=== PATIENT | female | born 1940 | race Caucasian/White ===

== ENCOUNTER 2023-04-18 14:17 | Inpatient (IN) | payer MEDICARE, BC ==
[2023-04-18 15:15] LABS: #Basophils 0.1 thou/uL (0.0-0.2); #Eosinphils 0.2 thou/uL (0.0-0.7); #Monocytes 0.6 thou/uL (0.11-0.59); #Neutrophils 7.4 thou/uL (1.40-6.50); %Basophils 0.6 % (0.0-1.0); %Eosinophils 2.5 % (0.0-10.0); %Lymphocytes 7.9 % (21.0-51.0); %Monocytes 6.9 % (0.0-10.0); %Neutrophils 81.8 % (42.0-75.0); Hematocrit 37.1 % (36.0-47.0); Hemoglobin 11.1 g/dL (12.0-16.0); Mean Corpuscular HGB CONC 29.9 g/dL (32.0-36.0); Mean Corpuscular Hemoglobin 27.8 pg (27.0-31.0); Mean Platelet Volume 11.4 fL (7.4-10.4); Platelet Count 161 10x3/uL (130-400); RBC Distribution Width 16.8 % (11.5-14.5); Red Blood Cell (RBC) Count 3.99 mill/uL (4.20-5.40)
[2023-04-18 15:30] LABS: Acetaminophen Less than 10 mcg/mL (10.0-30.0); Alcohol Less than 10.0 mg/dL (Less than 10); Salicylate Less than 8.0 mg/dL (15.0-30.0)
[2023-04-18 15:40] LABS: ALT (SGPT) 12 U/L (8-55); AST (SGOT) 19 U/L (5-34); Albumin 3.7 g/dL (3.4-4.8); Alkaline Phosphatase 89 U/L (40-110); Anion Gap 13 mmol/L (10-20); BUN (Urea Nitrogen) 15 mg/dL (9.8-20.1); Bilirubin, Total 0.9 mg/dL (0.2-1.2); Calc. Creatinine Clearance 0 mL/min (70-130); Calcium 8.3 mg/dL (7.8-10.44); Carbon Dioxide 35 mmol/L (23-31); Chloride 100 mmol/L (98-107); Estimated GFR 74; Globulin 2.3 g/dL (2.4-3.5); Glucose 113 mg/dL (83-110); Potassium 3.3 mmol/L (3.5-5.1); Sodium 145 mmol/L (136-145)
[2023-04-18 15:41] LABS: Troponin I 0.225 ng/mL (< 0.028)
[2023-04-18 15:43] LABS: Bacteria/HPF None Seen HPF (None Seen); Bilirubin Negative (Negative); Blood, Urine Negative (Negative); CAUTI Indications for Culture Alt mental st,lethar; Clarity Clear (Clear); Glucose, Urine (Dipstick) Normal (Negative); Ketone, Urine Negative (Negative); Leukocyte Negative Leu/uL (Negative); Nitrite Negative (Negative); Protein, Urine (Dipstick) Negative (Neg-Trace); RBC/HPF 0-3 HPF (0-3); Specific Gravity, Urine 1.011 (1.002-1.036); Squamous Epithelial None Seen HPF (0-3); Urobilinogen Normal mg/dL (Less than 2); WBC/HPF 0-3 HPF (0-3)
[2023-04-18 15:44] LABS: Urine Culture Reflex No No
[2023-04-18 15:48] LABS: Amphetamine Not Detected (NotDetected); Barbiturates Screen Not Detected (NotDetected); Benzodiazepine Screen Not Detected (NotDetected); Cocaine Metabolite Screen Not Detected (NotDetected); Methadone Not Detected (NotDetected); Methamphetamine Not Detected (NotDetected); Opiate Screen Not Detected (NotDetected); Oxycodone Screen Not Detected (NotDetected); Phencyclidine (PCP) Not Detected (NotDetected); THC/Cannabinoid Screen Not Detected (NotDetected); Tricyclic Screen Not Detected (NotDetected)
[2023-04-18] MEDS ORDERED: Furosemide 40 MG/4 ML VIAL ONE (15:57)
[2023-04-18 16:18] LABS: CRP (Inflammatory) 7.26 mg/dL (= or < 0.5); Magnesium 1.2 mg/dL (1.6-2.6)
[2023-04-18] MEDS ORDERED: cefTRIAXone (ROCEPHIN) 1 GM VIAL ONE (17:44)
[2023-04-18 18:12] LABS: Troponin I 0.177 ng/mL (< 0.028)
[2023-04-18] MEDS ORDERED: Glucagon 1 MG/ML KIT IM PRN (18:55)
[2023-04-18] MEDS ORDERED: Ondansetron ODT 4 MG TAB PO PRN (18:55)
[2023-04-18] MEDS ORDERED: HumaLOG 300 UNITS/3 ML VIAL SC PRN ×2 (18:55)
[2023-04-18] MEDS ORDERED: Acetaminophen 325 MG TAB PO PRN (18:55)
[2023-04-18] MEDS ORDERED: Ondansetron PF 4 MG/2 ML Vial IVP PRN (18:55)
[2023-04-18] MEDS ORDERED: Dextrose 50% Abboject 50 ML SYRINGE SLOW IVP PRN (18:55)
[2023-04-18] MEDS ORDERED: Dextrose 5% in Water 1,000 ML IV PRN (18:55)
[2023-04-18] MEDS ORDERED: Magnesium 2 GM/50 ML(in water) 2 GM in Premix Bag 1 BAG IVPB SCH (19:15)
[2023-04-18] MEDS ORDERED: Doxycycline 100 MG in Sodium Chloride 0.9% 100 ML IVPB SCH (19:30)
[2023-04-18] MEDS: Communication Order-Pharmacy FS SCH (19:57)
[2023-04-18] MEDS ORDERED: Potassium Chloride 20 MEQ TAB PO SCH (20:30)
[2023-04-18 20:58] LABS: Troponin I 0.173 ng/mL (< 0.028)
[2023-04-18] MEDS: Carvedilol 25 MG TAB PO SCH (21:05)
[2023-04-19 03:45] LABS: SARS-CoV-2 NAA Rapid Test Not Detected (NotDetected)
[2023-04-19 04:09] LABS: #Eosinphils 0.3 thou/uL (0.0-0.7); #Monocytes 0.8 thou/uL (0.11-0.59); #Neutrophils 6.6 thou/uL (1.40-6.50); %Basophils 0.5 % (0.0-1.0); %Eosinophils 3.1 % (0.0-10.0); %Lymphocytes 11.4 % (21.0-51.0); %Monocytes 8.6 % (0.0-10.0); %Neutrophils 76.1 % (42.0-75.0); Hematocrit 35.6 % (36.0-47.0); Hemoglobin 10.2 g/dL (12.0-16.0); Mean Corpuscular HGB CONC 28.7 g/dL (32.0-36.0); Mean Corpuscular Volume 94.2 fl (78.0-98.0); Mean Platelet Volume 11.5 fL (7.4-10.4); Platelet Count 157 10x3/uL (130-400); RBC Distribution Width 16.6 % (11.5-14.5); Red Blood Cell (RBC) Count 3.78 mill/uL (4.20-5.40); White Blood Cell (WBC) Count 8.7 10x3/uL (4.8-10.8)
[2023-04-19 04:29] LABS: Hemoglobin A1c 5.5 % (4.0-6.0)
[2023-04-19 04:36] LABS: ALT (SGPT) 12 U/L (8-55); AST (SGOT) 17 U/L (5-34); Albumin 3.5 g/dL (3.4-4.8); Alkaline Phosphatase 82 U/L (40-110); BUN (Urea Nitrogen) 15 mg/dL (9.8-20.1); Bilirubin, Total 0.5 mg/dL (0.2-1.2); Calc. Creatinine Clearance 77 mL/min (70-130); Estimated GFR 72; Glucose 107 mg/dL (83-110); Magnesium 1.6 mg/dL (1.6-2.6); Protein, Total 5.5 g/dL (5.8-8.1)
[2023-04-19 04:37] LABS: CRP (Inflammatory) 5.47 mg/dL (= or < 0.5); Cardiac Risk 2.4 (Less than 4.5)
[2023-04-19 04:45] LABS: Anion Gap 18 mmol/L (10-20); Carbon Dioxide 33 mmol/L (23-31); Chloride 99 mmol/L (98-107); Potassium 3.4 mmol/L (3.5-5.1); Sodium 147 mmol/L (136-145)
[2023-04-19] MEDS: Furosemide 80 MG TAB PO SCH ×2 (05:46→13:25)
[2023-04-19] MEDS ORDERED: Furosemide 40 MG/4 ML VIAL SLOW IVP SCH (06:00)
[2023-04-19] MEDS ORDERED: Losartan 25 MG TAB PO SCH (09:00)
[2023-04-19] MEDS: Allopurinol 300 MG TAB PO SCH (09:15)
[2023-04-19] MEDS: Doxycycline 100 MG in Sodium Chloride 0.9% 100 ML IVPB SCH ×2 (09:15→20:43)
[2023-04-19] MEDS: Aspirin Chewable 81 MG TAB PO SCH (09:15)
[2023-04-19] MEDS: Carvedilol 25 MG TAB PO SCH (09:15)
[2023-04-19] MEDS ORDERED: Potassium Chloride 20 MEQ TAB PO SCH (10:00)
[2023-04-19] MEDS: cefTRIAXone\\ROCEPHIN 1 GM in Sodium Chloride 0.9% 100 ML IVPB SCH (17:07)
[2023-04-20 03:48] LABS: #Basophils 0.1 thou/uL (0.0-0.2); #Eosinphils 0.4 thou/uL (0.0-0.7); #Monocytes 0.8 thou/uL (0.11-0.59); #Neutrophils 6.4 thou/uL (1.40-6.50); %Basophils 0.7 % (0.0-1.0); %Eosinophils 4.3 % (0.0-10.0); %Lymphocytes 13.1 % (21.0-51.0); %Monocytes 8.9 % (0.0-10.0); %Neutrophils 72.8 % (42.0-75.0); Hematocrit 35.7 % (36.0-47.0); Hemoglobin 10.5 g/dL (12.0-16.0); Mean Corpuscular HGB CONC 29.4 g/dL (32.0-36.0); Mean Corpuscular Hemoglobin 27.7 pg (27.0-31.0); Mean Corpuscular Volume 94.2 fl (78.0-98.0); Mean Platelet Volume 10.9 fL (7.4-10.4); Platelet Count 193 10x3/uL (130-400); RBC Distribution Width 16.2 % (11.5-14.5); Red Blood Cell (RBC) Count 3.79 mill/uL (4.20-5.40); White Blood Cell (WBC) Count 8.8 10x3/uL (4.8-10.8)
[2023-04-20 04:16] LABS: ALT (SGPT) 11 U/L (8-55); AST (SGOT) 18 U/L (5-34); Albumin 3.4 g/dL (3.4-4.8); Alkaline Phosphatase 72 U/L (40-110); BUN (Urea Nitrogen) 14 mg/dL (9.8-20.1); Bilirubin, Total 0.5 mg/dL (0.2-1.2); Calc. Creatinine Clearance 78 mL/min (70-130); Calcium 8.2 mg/dL (7.8-10.44); Estimated GFR 74; Globulin 2.4 g/dL (2.4-3.5); Glucose 99 mg/dL (83-110); Magnesium 1.2 mg/dL (1.6-2.6); Protein, Total 5.8 g/dL (5.8-8.1)
[2023-04-20 04:26] LABS: Anion Gap 20 mmol/L (10-20); Carbon Dioxide 32 mmol/L (23-31); Chloride 98 mmol/L (98-107); Potassium 3.6 mmol/L (3.5-5.1); Sodium 146 mmol/L (136-145)
[2023-04-20] MEDS: Furosemide 80 MG TAB PO SCH (05:48)
[2023-04-20] MEDS ORDERED: Magnesium Sulfate In Water 4 GM in Premix Bag 1 BAG IVPB SCH (09:15)
[2023-04-20] MEDS: Potassium Chloride 20 MEQ TAB PO SCH (09:38)
[2023-04-20] MEDS: Aspirin Chewable 81 MG TAB PO SCH (09:38)
[2023-04-20] MEDS: Doxycycline 100 MG in Sodium Chloride 0.9% 100 ML IVPB SCH ×2 (09:38→22:07)
[2023-04-20] MEDS: Allopurinol 300 MG TAB PO SCH (09:38)
[2023-04-20] MEDS ORDERED: Nystatin Powder 15 GM BOT TOP PRN (12:17)
[2023-04-20] MEDS: Communication Order-Pharmacy FS SCH (12:23)
[2023-04-20] MEDS: Furosemide 40 MG/4 ML VIAL SLOW IVP SCH ×2 (12:24→14:31)
[2023-04-20 16:09] LABS: Actual Bicarbonate (HCO3a) 35.4 mEq/L (22-28); Base Excess (BEa) 8.9 mEq/L (-2.0 to +3.0); CO2 Tension 59.4 mmHg (35.0-45.0); Calcium, Ionized (arterial) 1.07 mmol/L (1.12-1.30); Carboxyhemoglobin (COHb) 1.2 gm% (0.0-3.0); Hematocrit-ABG 31 % (36.0-47.0); Hemoglobin (Hb) 10.7 g/dL (12.0-16.0); O2 Tension (PaO2), arterial 75.7 mmHg (> 60.0); pH, Arterial 7.393 (7.35-7.45)
[2023-04-20 16:11] LABS: Puncture Site RBA
[2023-04-20] MEDS: cefTRIAXone\\ROCEPHIN 1 GM in Sodium Chloride 0.9% 100 ML IVPB SCH (18:42)
[2023-04-20] MEDS ORDERED: Ipratropium/Albuterol 3 ML NEB NEB SCH (19:30)
[2023-04-20] MEDS: Melatonin 3 MG TAB PO SCH ×2 (22:06→22:09)
[2023-04-21 04:33] LABS: #Basophils 0.1 thou/uL (0.0-0.2); #Eosinphils 0.3 thou/uL (0.0-0.7); #Monocytes 0.8 thou/uL (0.11-0.59); #Neutrophils 6.3 thou/uL (1.40-6.50); %Basophils 0.6 % (0.0-1.0); %Eosinophils 3.8 % (0.0-10.0); %Lymphocytes 15.7 % (21.0-51.0); %Monocytes 8.5 % (0.0-10.0); %Neutrophils 71.1 % (42.0-75.0); Hematocrit 36.1 % (36.0-47.0); Hemoglobin 10.5 g/dL (12.0-16.0); Mean Corpuscular HGB CONC 29.1 g/dL (32.0-36.0); Mean Corpuscular Hemoglobin 27.3 pg (27.0-31.0); Mean Corpuscular Volume 93.8 fl (78.0-98.0); Mean Platelet Volume 11.1 fL (7.4-10.4); Platelet Count 191 10x3/uL (130-400); RBC Distribution Width 16.2 % (11.5-14.5); Red Blood Cell (RBC) Count 3.85 mill/uL (4.20-5.40); White Blood Cell (WBC) Count 8.8 10x3/uL (4.8-10.8)
[2023-04-21 05:00] LABS: ALT (SGPT) 10 U/L (8-55); AST (SGOT) 17 U/L (5-34); Albumin 3.4 g/dL (3.4-4.8); Alkaline Phosphatase 73 U/L (40-110); BUN (Urea Nitrogen) 11 mg/dL (9.8-20.1); Bilirubin, Total 0.5 mg/dL (0.2-1.2); Calc. Creatinine Clearance 86 mL/min (70-130); Calcium 8.8 mg/dL (7.8-10.44); Estimated GFR 83; Globulin 2.4 g/dL (2.4-3.5); Glucose 103 mg/dL (83-110); Protein, Total 5.8 g/dL (5.8-8.1)
[2023-04-21 05:09] LABS: Anion Gap 18 mmol/L (10-20); Carbon Dioxide 35 mmol/L (23-31); Chloride 97 mmol/L (98-107); Potassium 3.6 mmol/L (3.5-5.1); Sodium 146 mmol/L (136-145)
[2023-04-21] MEDS: Furosemide 40 MG/4 ML VIAL SLOW IVP SCH (05:42)
[2023-04-21] MEDS: Aspirin Chewable 81 MG TAB PO SCH (09:42)
[2023-04-21] MEDS: Potassium Chloride 20 MEQ TAB PO SCH (09:43)
[2023-04-21] MEDS: Doxycycline 100 MG in Sodium Chloride 0.9% 100 ML IVPB SCH ×2 (09:43→21:39)
[2023-04-21] MEDS: Losartan 25 MG TAB PO SCH (09:43)
[2023-04-21] MEDS: Allopurinol 300 MG TAB PO SCH (09:43)
[2023-04-21 09:44] LABS: Magnesium 1.7 mg/dL (1.6-2.6)
[2023-04-21] MEDS ORDERED: Magnesium 2 GM/50 ML(in water) 2 GM in Premix Bag 1 BAG IVPB SCH (12:00)
[2023-04-21] MEDS: cefTRIAXone\\ROCEPHIN 1 GM in Sodium Chloride 0.9% 100 ML IVPB SCH (17:43)
[2023-04-21] MEDS: Melatonin 3 MG TAB PO SCH (21:35)
[2023-04-22 04:56] LABS: #Eosinphils 0.2 thou/uL (0.0-0.7); #Monocytes 0.6 thou/uL (0.11-0.59); #Neutrophils 4.7 thou/uL (1.40-6.50); %Basophils 0.5 % (0.0-1.0); %Eosinophils 3.5 % (0.0-10.0); %Lymphocytes 15.1 % (21.0-51.0); %Monocytes 9.1 % (0.0-10.0); Hematocrit 35.4 % (36.0-47.0); Hemoglobin 10.4 g/dL (12.0-16.0); Mean Corpuscular HGB CONC 29.4 g/dL (32.0-36.0); Mean Corpuscular Hemoglobin 27.7 pg (27.0-31.0); Mean Corpuscular Volume 94.4 fl (78.0-98.0); Mean Platelet Volume 10.8 fL (7.4-10.4); Platelet Count 161 10x3/uL (130-400); RBC Distribution Width 15.8 % (11.5-14.5); Red Blood Cell (RBC) Count 3.75 mill/uL (4.20-5.40); White Blood Cell (WBC) Count 6.6 10x3/uL (4.8-10.8)
[2023-04-22 06:58] LABS: ALT (SGPT) 9 U/L (8-55); AST (SGOT) 18 U/L (5-34); Albumin 3.3 g/dL (3.4-4.8); Alkaline Phosphatase 70 U/L (40-110); BUN (Urea Nitrogen) 10 mg/dL (9.8-20.1); Bilirubin, Total 0.5 mg/dL (0.2-1.2); Calc. Creatinine Clearance 93 mL/min (70-130); Estimated GFR 88; Globulin 2.3 g/dL (2.4-3.5); Glucose 106 mg/dL (83-110); Protein, Total 5.6 g/dL (5.8-8.1)
[2023-04-22 07:19] LABS: Anion Gap 17 mmol/L (10-20); Carbon Dioxide 38 mmol/L (23-31); Chloride 96 mmol/L (98-107); Potassium 3.8 mmol/L (3.5-5.1); Sodium 147 mmol/L (136-145)
[2023-04-22] MEDS: Doxycycline 100 MG in Sodium Chloride 0.9% 100 ML IVPB SCH ×2 (08:56→21:21)
[2023-04-22] MEDS: Aspirin Chewable 81 MG TAB PO SCH (08:57)
[2023-04-22] MEDS: Allopurinol 300 MG TAB PO SCH (08:57)
[2023-04-22] MEDS: Losartan 25 MG TAB PO SCH (08:57)
[2023-04-22] MEDS: Potassium Chloride 20 MEQ TAB PO SCH ×2 (08:57→09:25)
[2023-04-22] MEDS ORDERED: Losartan 25 MG TAB PO SCH (10:00)
[2023-04-22] MEDS: cefTRIAXone\\ROCEPHIN 1 GM in Sodium Chloride 0.9% 100 ML IVPB SCH (18:20)
[2023-04-22] MEDS: Melatonin 3 MG TAB PO SCH (21:21)
[2023-04-23 07:19] LABS: #Basophils 0.1 thou/uL (0.0-0.2); #Eosinphils 0.3 thou/uL (0.0-0.7); #Monocytes 0.8 thou/uL (0.11-0.59); #Neutrophils 5.6 thou/uL (1.40-6.50); %Basophils 0.6 % (0.0-1.0); %Eosinophils 3.4 % (0.0-10.0); %Lymphocytes 15.4 % (21.0-51.0); %Monocytes 9.8 % (0.0-10.0); %Neutrophils 70.3 % (42.0-75.0); Hematocrit 37.1 % (36.0-47.0); Hemoglobin 10.8 g/dL (12.0-16.0); Mean Corpuscular HGB CONC 29.1 g/dL (32.0-36.0); Mean Corpuscular Hemoglobin 27.4 pg (27.0-31.0); Mean Corpuscular Volume 94.2 fl (78.0-98.0); Mean Platelet Volume 11.2 fL (7.4-10.4); Platelet Count 174 10x3/uL (130-400); RBC Distribution Width 15.7 % (11.5-14.5); Red Blood Cell (RBC) Count 3.94 mill/uL (4.20-5.40)
[2023-04-23 07:21] LABS: ALT (SGPT) 12 U/L (8-55); AST (SGOT) 19 U/L (5-34); Albumin 3.2 g/dL (3.4-4.8); Alkaline Phosphatase 69 U/L (40-110); BUN (Urea Nitrogen) 9 mg/dL (9.8-20.1); Bilirubin, Total 0.6 mg/dL (0.2-1.2); Calc. Creatinine Clearance 93 mL/min (70-130); Calcium 9.1 mg/dL (7.8-10.44); Estimated GFR 88; Globulin 2.5 g/dL (2.4-3.5); Glucose 96 mg/dL (83-110); Protein, Total 5.7 g/dL (5.8-8.1)
[2023-04-23 07:30] LABS: Anion Gap 18 mmol/L (10-20); Carbon Dioxide 35 mmol/L (23-31); Chloride 95 mmol/L (98-107); Potassium 3.9 mmol/L (3.5-5.1); Sodium 144 mmol/L (136-145)
[2023-04-23] MEDS: Aspirin Chewable 81 MG TAB PO SCH (08:55)
[2023-04-23] MEDS: Allopurinol 300 MG TAB PO SCH (08:56)
[2023-04-23] MEDS ORDERED: Losartan 25 MG TAB PO SCH ×2 (09:00→11:00)
[2023-04-23] MEDS: Melatonin 3 MG TAB PO SCH (19:46)
[2023-04-24 05:52] LABS: #Basophils 0.1 thou/uL (0.0-0.2); #Eosinphils 0.2 thou/uL (0.0-0.7); #Monocytes 0.7 thou/uL (0.11-0.59); #Neutrophils 5.6 thou/uL (1.40-6.50); %Basophils 0.6 % (0.0-1.0); %Eosinophils 2.8 % (0.0-10.0); %Lymphocytes 17.8 % (21.0-51.0); %Neutrophils 68.9 % (42.0-75.0); Hematocrit 34.3 % (36.0-47.0); Mean Corpuscular HGB CONC 29.2 g/dL (32.0-36.0); Mean Corpuscular Hemoglobin 27.2 pg (27.0-31.0); Mean Corpuscular Volume 93.2 fl (78.0-98.0); Mean Platelet Volume 11.4 fL (7.4-10.4); Platelet Count 185 10x3/uL (130-400); RBC Distribution Width 15.8 % (11.5-14.5); Red Blood Cell (RBC) Count 3.68 mill/uL (4.20-5.40); White Blood Cell (WBC) Count 8.2 10x3/uL (4.8-10.8)
[2023-04-24 06:23] LABS: ALT (SGPT) 12 U/L (8-55); AST (SGOT) 20 U/L (5-34); Albumin 2.8 g/dL (3.4-4.8); Alkaline Phosphatase 64 U/L (40-110); BUN (Urea Nitrogen) 13 mg/dL (9.8-20.1); Bilirubin, Total 0.5 mg/dL (0.2-1.2); Calc. Creatinine Clearance 93 mL/min (70-130); Calcium 8.9 mg/dL (7.8-10.44); Estimated GFR 88; Globulin 2.4 g/dL (2.4-3.5); Glucose 115 mg/dL (83-110); Protein, Total 5.2 g/dL (5.8-8.1)
[2023-04-24 06:32] LABS: Anion Gap 15 mmol/L (10-20); Carbon Dioxide 35 mmol/L (23-31); Chloride 97 mmol/L (98-107); Potassium 3.7 mmol/L (3.5-5.1); Sodium 143 mmol/L (136-145)
[2023-04-24] MEDS: Aspirin Chewable 81 MG TAB PO SCH (10:49)
[2023-04-24] MEDS: Losartan 25 MG TAB PO SCH (10:49)
[2023-04-24] MEDS: Allopurinol 300 MG TAB PO SCH (10:49)
[2023-04-24 13:34] VITALS: BMI 37.9
[2023-04-24] MEDS: Melatonin 3 MG TAB PO SCH (20:26)
[2023-04-25 05:50] LABS: #Eosinphils 0.3 thou/uL (0.0-0.7); #Neutrophils 5.6 thou/uL (1.40-6.50); %Basophils 0.5 % (0.0-1.0); %Eosinophils 3.7 % (0.0-10.0); %Lymphocytes 17.6 % (21.0-51.0); %Monocytes 11.2 % (0.0-10.0); %Neutrophils 66.3 % (42.0-75.0); Hematocrit 35.6 % (36.0-47.0); Hemoglobin 10.5 g/dL (12.0-16.0); Mean Corpuscular HGB CONC 29.5 g/dL (32.0-36.0); Mean Corpuscular Hemoglobin 27.4 pg (27.0-31.0); Mean Platelet Volume 11.5 fL (7.4-10.4); Platelet Count 195 10x3/uL (130-400); Red Blood Cell (RBC) Count 3.83 mill/uL (4.20-5.40); White Blood Cell (WBC) Count 8.5 10x3/uL (4.8-10.8)
[2023-04-25 06:19] LABS: ALT (SGPT) 12 U/L (8-55); AST (SGOT) 23 U/L (5-34); Alkaline Phosphatase 66 U/L (40-110); Anion Gap 11 mmol/L (10-20); BUN (Urea Nitrogen) 9 mg/dL (9.8-20.1); Bilirubin, Total 0.3 mg/dL (0.2-1.2); Calc. Creatinine Clearance 91 mL/min (70-130); Calcium 8.9 mg/dL (7.8-10.44); Carbon Dioxide 36 mmol/L (23-31); Chloride 99 mmol/L (98-107); Estimated GFR 88; Globulin 2.5 g/dL (2.4-3.5); Glucose 127 mg/dL (83-110); Potassium 4.1 mmol/L (3.5-5.1); Protein, Total 5.5 g/dL (5.8-8.1); Sodium 142 mmol/L (136-145)
[2023-04-25] MEDS: Losartan 25 MG TAB PO SCH (11:27)
[2023-04-25] MEDS: Allopurinol 300 MG TAB PO SCH (11:27)
[2023-04-25] MEDS: Aspirin Chewable 81 MG TAB PO SCH (11:28)
[2023-04-25 14:25] VITALS: BP 123/58; TEMP 98.2
== END 2023-04-25 13:48 | disposition home or self-care (01) | DRG 193 ==
LOC: ERS 14:17 → 2NO 17:55 → T4-A 04-21 12:14 → T4-B 04-21 14:15
PROVIDERS: ADMIT Family Medicine; ATTEND Family Medicine
PROC: 0T9B70Z Drainage of Bladder with Drainage Device, Via Natural or Artificial Opening (ICD-10-PCS; principal; 2023-04-18)
PROC: 4A033R1 Measurement of Arterial Saturation, Peripheral, Percutaneous Approach (ICD-10-PCS; 2023-04-20)
PROC: 4A00X4Z Measurement of Central Nervous Electrical Activity, External Approach (ICD-10-PCS; 2023-04-23)
DX: J12.9 Viral pneumonia, unspecified (principal); G93.41 Metabolic encephalopathy; J96.01 Acute respiratory failure with hypoxia; I50.33 Acute on chronic diastolic (congestive) heart failure; E87.3 Alkalosis; J96.12 Chronic respiratory failure with hypercapnia; I24.89 Other forms of acute ischemic heart disease; I48.91 Unspecified atrial fibrillation; E87.70 Fluid overload, unspecified; M10.9 Gout, unspecified; I11.0 Hypertensive heart disease with heart failure; E11.9 Type 2 diabetes mellitus without complications; G47.33 Obstructive sleep apnea (adult) (pediatric); Z20.822 Contact with and (suspected) exposure to COVID-19; Z79.899 Other long term (current) drug therapy; Z79.84 Long term (current) use of oral hypoglycemic drugs; Z82.49 Family history of ischemic heart disease and other diseases of the circulatory system; Z79.4 Long term (current) use of insulin; Z79.82 Long term (current) use of aspirin; Z83.3 Family history of diabetes mellitus; R94.31 Abnormal electrocardiogram [ECG] [EKG]; I08.1 Rheumatic disorders of both mitral and tricuspid valves
CPT/HCPCS: 36415; 36416; 36600; 51701; 70450; 71045; 71046; 74230; 80053; 80061; 80306; 80307; 81001; 82140; 82805; 83036; 83605; 83735; 83880; 84145; 84443; 84484; 85025; 86140; 87040; 87077; 87149; 87186; 93005; 93306; 94640; 95711; 95819; 95957; 96365; 96372; 96375; J0696; J1650; J1940; J3475; J3490; J7611

== ENCOUNTER 2023-07-15 21:48 | Inpatient (IN) | payer MEDICARE, BC ==
[~2023-07-15 21:48] MED LIST: Iopamidol-370 76% 500 ML MDV (1 ML CHARGE) ONE
[2023-07-15 22:58] LABS: #Monocytes 0.8 thou/uL (0.11-0.59); #Neutrophils 14.6 thou/uL (1.40-6.50); %Basophils 0.1 % (0.0-1.0); %Lymphocytes 6.3 % (21.0-51.0); %Monocytes 4.6 % (0.0-10.0); %Neutrophils 88.7 % (42.0-75.0); Hematocrit 41.8 % (36.0-47.0); Mean Corpuscular HGB CONC 31.1 g/dL (32.0-36.0); Mean Corpuscular Hemoglobin 27.8 pg (27.0-31.0); Mean Corpuscular Volume 89.3 fl (78.0-98.0); Mean Platelet Volume 10.7 fL (7.4-10.4); Platelet Count 257 10x3/uL (130-400); RBC Distribution Width 14.7 % (11.5-14.5); Red Blood Cell (RBC) Count 4.68 mill/uL (4.20-5.40); White Blood Cell (WBC) Count 16.5 10x3/uL (4.8-10.8)
[2023-07-15 23:12] LABS: INR-International Normal Ratio 1.1; Prothrombin Time 14.9 sec (12.0-14.7)
[2023-07-15 23:14] LABS: PTT 28.5 sec (22.9-36.1)
[2023-07-15 23:17] LABS: Bacteria/HPF None Seen HPF (None Seen); Bilirubin Negative (Negative); Blood, Urine Negative (Negative); CAUTI Indications for Culture Alt mental st,lethar; Clarity Clear (Clear); Glucose, Urine (Dipstick) Normal (Negative); Ketone, Urine 40 mg/dL (Negative); Leukocyte Negative Leu/uL (Negative); Nitrite Negative (Negative); Protein, Urine (Dipstick) 30 mg/dL (Neg-Trace); Specific Gravity, Urine 1.046 (1.002-1.036); Squamous Epithelial None Seen HPF (0-3); Urobilinogen Normal mg/dL (Less than 2); WBC/HPF 0-3 HPF (0-3)
[2023-07-15 23:18] LABS: Urine Culture Reflex No No
[2023-07-15 23:19] LABS: ALT (SGPT) 17 U/L (8-55); AST (SGOT) 25 U/L (5-34); Albumin 4.1 g/dL (3.4-4.8); Alkaline Phosphatase 94 U/L (40-110); Anion Gap 15 mmol/L (10-20); BUN (Urea Nitrogen) 19 mg/dL (9.8-20.1); Bilirubin, Total 0.6 mg/dL (0.2-1.2); Calc. Creatinine Clearance 0 mL/min (70-130); Calcium 9.5 mg/dL (7.8-10.44); Carbon Dioxide 26 mmol/L (23-31); Chloride 101 mmol/L (98-107); Estimated GFR 77; Globulin 3.1 g/dL (2.4-3.5); Glucose 139 mg/dL (83-110); Potassium 4.4 mmol/L (3.5-5.1); Protein, Total 7.2 g/dL (5.8-8.1); Sodium 138 mmol/L (136-145)
[2023-07-15 23:23] LABS: Troponin I 0.163 ng/mL (< 0.028)
[2023-07-15] MEDS ORDERED: Heparin 5,000 UNITS/ML VIAL ONE (23:29)
[2023-07-15] MEDS ORDERED: Heparin 25,000 units/D5W 500 ML ONE (23:29)
[2023-07-15] MEDS ORDERED: Aspirin 300 MG Suppository ONE (23:30)
[2023-07-16] MEDS ORDERED: hydrALAZINE 20 MG/ML VIAL SLOW IVP PRN (00:21)
[2023-07-16] MEDS ORDERED: Acetaminophen 325 MG TAB PO PRN (00:21)
[2023-07-16] MEDS ORDERED: Labetalol HCl 100 MG/20 ML VIAL SLOW IVP PRN (00:21)
[2023-07-16] MEDS ORDERED: Acetaminophen 650 MG Suppository PR PRN (00:21)
[2023-07-16] MEDS ORDERED: Ondansetron PF 4 MG/2 ML Vial IVP PRN (00:21)
[2023-07-16] MEDS ORDERED: Dextrose 5% in Water 1,000 ML IV PRN (00:30)
[2023-07-16] MEDS ORDERED: HumaLOG 300 UNITS/3 ML VIAL SC PRN ×2 (00:30)
[2023-07-16] MEDS ORDERED: Dextrose 50% Abboject 50 ML SYRINGE SLOW IVP PRN (00:30)
[2023-07-16] MEDS ORDERED: Glucagon 1 MG/ML KIT IM PRN (00:30)
[2023-07-16] MEDS ORDERED: Heparin 10,000 UNITS/ 10 ML VIAL SLOW IVP SCH (01:45)
[2023-07-16] MEDS ORDERED: Heparin 25,000 units/D5W 500 ML IVPB SCH (03:00)
[2023-07-16] MEDS ORDERED: Sodium Chloride 0.9% 500 ML IV SCH (03:30)
[2023-07-16 04:45] LABS: #Monocytes 1.1 thou/uL (0.11-0.59); %Basophils 0.2 % (0.0-1.0); %Lymphocytes 8.8 % (21.0-51.0); %Monocytes 6.4 % (0.0-10.0); %Neutrophils 84.3 % (42.0-75.0); Hematocrit 43.1 % (36.0-47.0); Hemoglobin 12.8 g/dL (12.0-16.0); Mean Corpuscular HGB CONC 29.7 g/dL (32.0-36.0); Mean Corpuscular Hemoglobin 27.6 pg (27.0-31.0); Platelet Count 212 10x3/uL (130-400); RBC Distribution Width 14.9 % (11.5-14.5); Red Blood Cell (RBC) Count 4.63 mill/uL (4.20-5.40); White Blood Cell (WBC) Count 17.8 10x3/uL (4.8-10.8)
[2023-07-16 04:49] LABS: Hemoglobin A1c 6.2 % (4.0-6.0)
[2023-07-16 04:58] LABS: Mean Corpuscular Volume 93.1 fl (78.0-98.0)
[2023-07-16 05:15] LABS: Anion Gap 15 mmol/L (10-20); BUN (Urea Nitrogen) 18 mg/dL (9.8-20.1); Calc. Creatinine Clearance 76 mL/min (70-130); Calcium 9.4 mg/dL (7.8-10.44); Carbon Dioxide 24 mmol/L (23-31); Cardiac Risk 2.2 (Less than 4.5); Chloride 103 mmol/L (98-107); Cholesterol 129 mg/dl (< 200 Desired); Estimated GFR 81; Glucose 126 mg/dL (83-110); HDL Cholesterol 60 mg/dL (>60 Neg Risk); LDL Cholesterol, Calculated 59 mg/dL; Sodium 138 mmol/L (136-145); Triglycerides 50 mg/dL (Less than 150)
[2023-07-16 05:18] LABS: Troponin I 0.233 ng/mL (< 0.028)
[2023-07-16 05:22] LABS: PTT 176.5 sec (22.9-36.1)
[2023-07-16] MEDS ORDERED: Lorazepam 2 MG/ML VIAL SLOW IVP SCH (12:00)
[2023-07-16 12:16] LABS: Troponin I 0.211 ng/mL (< 0.028)
[2023-07-16] MEDS: Sodium Chloride 0.9% 1,000 ML IV SCH ×2 (18:31→22:48)
[2023-07-16] MEDS: cefTRIAXone\\ROCEPHIN 2 GM in Sodium Chloride 0.9% 100 ML IVPB SCH (18:31)
[2023-07-16 18:55] LABS: Bacteria/HPF 2+ HPF (None Seen); Bilirubin Negative (Negative); Blood, Urine Negative (Negative); CAUTI Indications for Culture Alt mental st,lethar; Clarity Clear (Clear); Glucose, Urine (Dipstick) Normal (Negative); Ketone, Urine 10 mg/dL (Negative); Leukocyte Negative Leu/uL (Negative); Nitrite Negative (Negative); Protein, Urine (Dipstick) 10 mg/dL (Neg-Trace); RBC/HPF 0-3 HPF (0-3); Specific Gravity, Urine 1.024 (1.002-1.036); Squamous Epithelial None Seen HPF (0-3); Urobilinogen Normal mg/dL (Less than 2); WBC/HPF 0-3 HPF (0-3)
[2023-07-16 18:56] LABS: Urine Culture Reflex No No
[2023-07-16] MEDS: QUEtiapine 25 MG TAB PO SCH (20:45)
[2023-07-17 05:32] LABS: #Eosinphils 0.1 thou/uL (0.0-0.7); #Monocytes 1.3 thou/uL (0.11-0.59); #Neutrophils 7.9 thou/uL (1.40-6.50); %Basophils 0.3 % (0.0-1.0); %Eosinophils 1.1 % (0.0-10.0); %Lymphocytes 20.8 % (21.0-51.0); %Monocytes 10.9 % (0.0-10.0); %Neutrophils 66.6 % (42.0-75.0); Hematocrit 39.7 % (36.0-47.0); Hemoglobin 11.8 g/dL (12.0-16.0); Mean Corpuscular HGB CONC 29.7 g/dL (32.0-36.0); Mean Corpuscular Volume 90.8 fl (78.0-98.0); Mean Platelet Volume 10.9 fL (7.4-10.4); Platelet Count 153 10x3/uL (130-400); RBC Distribution Width 14.8 % (11.5-14.5); Red Blood Cell (RBC) Count 4.37 mill/uL (4.20-5.40); White Blood Cell (WBC) Count 11.9 10x3/uL (4.8-10.8)
[2023-07-17 05:57] LABS: Anion Gap 12 mmol/L (10-20); BUN (Urea Nitrogen) 19 mg/dL (9.8-20.1); Calc. Creatinine Clearance 87 mL/min (70-130); Calcium 8.4 mg/dL (7.8-10.44); Carbon Dioxide 25 mmol/L (23-31); Chloride 105 mmol/L (98-107); Estimated GFR 88; Glucose 92 mg/dL (83-110); Potassium 3.4 mmol/L (3.5-5.1); Sodium 139 mmol/L (136-145)
[2023-07-17 06:24] LABS: PTT 136.9 sec (22.9-36.1)
[2023-07-17] MEDS ORDERED: Aspirin 300 MG Suppository PR SCH (09:00)
[2023-07-17] MEDS: Apixaban 5 MG TAB PO SCH ×2 (10:57→20:51)
[2023-07-17] MEDS ORDERED: Aspirin 325 MG TAB PO SCH (11:00)
[2023-07-17] MEDS: cefTRIAXone\\ROCEPHIN 2 GM in Sodium Chloride 0.9% 100 ML IVPB SCH (18:11)
[2023-07-17] MEDS: QUEtiapine 25 MG TAB PO SCH (20:52)
[2023-07-17] MEDS: Famotidine 20 MG TAB PO SCH (20:52)
[2023-07-18 04:42] LABS: #Basophils 0.1 thou/uL (0.0-0.2); #Eosinphils 0.3 thou/uL (0.0-0.7); #Monocytes 0.9 thou/uL (0.11-0.59); #Neutrophils 6.9 thou/uL (1.40-6.50); %Basophils 0.6 % (0.0-1.0); %Eosinophils 2.6 % (0.0-10.0); %Lymphocytes 14.2 % (21.0-51.0); %Monocytes 9.6 % (0.0-10.0); %Neutrophils 72.7 % (42.0-75.0); Hematocrit 36.3 % (36.0-47.0); Hemoglobin 11.3 g/dL (12.0-16.0); Mean Corpuscular HGB CONC 31.1 g/dL (32.0-36.0); Mean Corpuscular Hemoglobin 27.8 pg (27.0-31.0); Mean Corpuscular Volume 89.2 fl (78.0-98.0); Mean Platelet Volume 11.4 fL (7.4-10.4); Platelet Count 168 10x3/uL (130-400); RBC Distribution Width 14.7 % (11.5-14.5); Red Blood Cell (RBC) Count 4.07 mill/uL (4.20-5.40); White Blood Cell (WBC) Count 9.6 10x3/uL (4.8-10.8)
[2023-07-18 05:16] LABS: Anion Gap 11 mmol/L (10-20); BUN (Urea Nitrogen) 15 mg/dL (9.8-20.1); Calc. Creatinine Clearance 85 mL/min (70-130); Calcium 8.2 mg/dL (7.8-10.44); Carbon Dioxide 26 mmol/L (23-31); Chloride 107 mmol/L (98-107); Estimated GFR 87; Glucose 123 mg/dL (83-110); Sodium 141 mmol/L (136-145)
[2023-07-18] MEDS ORDERED: Aspirin 325 MG TAB PO SCH (09:00)
[2023-07-18] MEDS: Famotidine 20 MG TAB PO SCH ×2 (09:13→20:32)
[2023-07-18] MEDS: Apixaban 5 MG TAB PO SCH ×2 (09:13→20:32)
[2023-07-18] MEDS ORDERED: Potassium Chloride 20 MEQ TAB PO SCH (11:00)
[2023-07-18 11:21] LABS: Magnesium 1.4 mg/dL (1.6-2.6)
[2023-07-18] MEDS ORDERED: Magnesium Sulfate In Water 4 GM in Premix 1 BAG IVPB SCH (14:30)
[2023-07-18] MEDS: QUEtiapine 25 MG TAB PO SCH (20:31)
[2023-07-19] MEDS: Apixaban 5 MG TAB PO SCH ×2 (09:02→21:50)
[2023-07-19] MEDS: Famotidine 20 MG TAB PO SCH ×2 (09:02→21:50)
[2023-07-19] MEDS: Allopurinol 300 MG TAB PO SCH (09:02)
[2023-07-19 09:14] LABS: Anion Gap 13 mmol/L (10-20); BUN (Urea Nitrogen) 14 mg/dL (9.8-20.1); Calc. Creatinine Clearance 84 mL/min (70-130); Calcium 8.1 mg/dL (7.8-10.44); Carbon Dioxide 24 mmol/L (23-31); Chloride 110 mmol/L (98-107); Estimated GFR 87; Glucose 101 mg/dL (83-110); Potassium 4.1 mmol/L (3.5-5.1); Sodium 143 mmol/L (136-145)
[2023-07-19] MEDS: QUEtiapine 25 MG TAB PO SCH (21:50)
[2023-07-20] MEDS: Apixaban 5 MG TAB PO SCH ×2 (08:56→20:28)
[2023-07-20] MEDS: Famotidine 20 MG TAB PO SCH ×2 (08:56→20:28)
[2023-07-20] MEDS: Allopurinol 300 MG TAB PO SCH (08:56)
[2023-07-20] MEDS: QUEtiapine 25 MG TAB PO SCH (20:28)
[2023-07-21] MEDS: Allopurinol 300 MG TAB PO SCH (09:12)
[2023-07-21] MEDS: Famotidine 20 MG TAB PO SCH ×2 (09:12→20:47)
[2023-07-21] MEDS: Apixaban 5 MG TAB PO SCH ×2 (09:12→20:47)
[2023-07-21] MEDS: QUEtiapine 25 MG TAB PO SCH (20:47)
[2023-07-22] MEDS: Famotidine 20 MG TAB PO SCH (08:46)
[2023-07-22] MEDS: Allopurinol 300 MG TAB PO SCH (08:46)
[2023-07-22 09:26] VITALS: BMI 31.0
[2023-07-22 11:52] VITALS: BP 162/81; TEMP 97.2
== END 2023-07-22 15:19 | DRG 70 ==
LOC: ERS 21:48 → IMCU/EMU 23:54 → 2NO 07-17 19:57
PROVIDERS: ADMIT Internal Medicine; ATTEND Hospitalist
PROC: 4A00X4Z Measurement of Central Nervous Electrical Activity, External Approach (ICD-10-PCS; principal; 2023-07-16)
DX: G93.41 Metabolic encephalopathy (principal); I21.A1 Myocardial infarction type 2; I26.93 Single subsegmental thrombotic pulmonary embolism without acute cor pulmonale; I50.32 Chronic diastolic (congestive) heart failure; E11.9 Type 2 diabetes mellitus without complications; M10.9 Gout, unspecified; D72.829 Elevated white blood cell count, unspecified; I11.0 Hypertensive heart disease with heart failure; E04.1 Nontoxic single thyroid nodule; Z66 Do not resuscitate; E66.9 Obesity, unspecified; Z68.31 Body mass index [BMI] 31.0-31.9, adult; Z79.899 Other long term (current) drug therapy; Z79.84 Long term (current) use of oral hypoglycemic drugs; Z87.891 Personal history of nicotine dependence
CPT/HCPCS: 0042T; 36415; 36416; 51701; 70450; 70496; 70498; 70551; 71045; 80048; 80053; 80061; 81001; 82550; 83036; 83735; 83880; 84484; 85025; 85610; 85730; 86140; 87040; 87077; 87149; 93005; 93306; 93970; 95711; 95819; 96365; 96366; J0696; J1644; J2060; J3475; J3490; J7030; J7050; Q9967